=== PATIENT | female | born 2000 | race Caucasian/White ===

== ENCOUNTER 2022-07-08 02:30 | Outpatient (CLI) | payer BC, MEDICAID | END 2022-07-08 02:31 | disposition home or self-care (01) | LOC: CSHULT 02:30 | PROVIDERS: ATTEND Nurse Practitioner Women's Health | DX: N63.22 Unspecified lump in the left breast, upper inner quadrant (principal) | CPT/HCPCS: 77066; G0279 ==

== ENCOUNTER → 2022-07-11 | Day surgery (SDC) | payer BC, MEDICAID | LOC: CSHULT 12:22 | PROVIDERS: ATTEND Nurse Practitioner Women's Health | PROC: 0HBU3ZX Excision of Left Breast, Percutaneous Approach, Diagnostic (ICD-10-PCS; principal; 2022-07-11) | DX: N63.20 Unspecified lump in the left breast, unspecified quadrant (principal); R92.8 Other abnormal and inconclusive findings on diagnostic imaging of breast ==

== ENCOUNTER 2022-07-18 11:48 | Outpatient (CLI) | payer BC, MEDICAID | END 2022-07-18 11:49 | disposition home or self-care (01) | LOC: CSHULT 11:48 | PROVIDERS: ATTEND Nurse Practitioner Women's Health | DX: N63.20 Unspecified lump in the left breast, unspecified quadrant (principal) ==